=== PATIENT | male | born 1985 | race Caucasian/White ===

== ENCOUNTER 2016-10-24 12:35 | Emergency (ER) | payer MEDICAID ==
[~2016-10-24] VITALS: Ht 172.7 cm; Wt 121.0 kg
[2016-10-24] MEDS ORDERED: DIPHENHYDRAMINE 50MG/ML VIAL IM STA (13:04)
[2016-10-24] MEDS ORDERED: MORPHINE SULFATE 10 MG/ML CPJ IM ONE (13:15)
[2016-10-24] MEDS ORDERED: MORPHINE SULFATE 4 MG/ML CPJ (NOT FOR IM USE) IV STA (13:48)
[2016-10-24] MEDS ORDERED: PROPOFOL 200MG/20ML VIAL IV PRN (14:30)
[2016-10-24] MEDS ORDERED: KETAMINE HCL 50 MG/ML 10ML IV ONE ×2 (14:30→15:15)
[2016-10-24] MEDS ORDERED: ONDANSETRON HCL 4MG/2ML VIAL IV ONE ×2 (14:30→15:15)
[2016-10-24] MEDS ORDERED: PROPOFOL 200MG/20ML VIAL IV ONE (15:15)
[2016-10-24 17:04] VITALS: BP 132/88
== END 2016-10-24 17:18 | disposition home or self-care (01) ==
LOC: ER 13:16
DX: S93.04XA Dislocation of right ankle joint, initial encounter (principal); I10 Essential (primary) hypertension; R56.9 Unspecified convulsions; W22.8XXA Striking against or struck by other objects, initial encounter; Y93.89 Activity, other specified; Y99.8 Other external cause status; Y92.89 Other specified places as the place of occurrence of the external cause
CPT/HCPCS: 27840; 73590; 73610; 96372; 96374; 96375; 99152; 99285; J1200; J2270; J2405; J7030; Z7610; J2704; J3490